=== PATIENT | female | born 1955 | race Caucasian/White ===

== ENCOUNTER 2025-01-03 15:24 | Emergency (ER) | payer MEDICARE, SELFPAY ==
--- NOTE | ~2025-01-03 | US_ITS ---
LEFT LOWER EXTREMITY VENOUS ULTRASOUND Ordering provider: Mariam Escobar MD History: . LLE swelling; mom of PE . Comparison: None. FINDINGS: --COMMON FEMORAL: Patent and free of thrombus. Normal compressibility, phasic flow and augmentation. --PROXIMAL SUPERFICIAL FEMORAL: Patent and free of thrombus. Normal compressibility, phasic flow and augmentation. --DISTAL SUPERFICIAL FEMORAL: Patent and free of thrombus. Normal compressibility, phasic flow and au gmentation. --POPLITEAL: Patent and free of thrombus. Normal compressibility, phasic flow and augmentation. --POSTERIOR TIBIAL: Patent and free of thrombus. Normal compressibility, phasic flow and augmentation . IMPRESSION: Negative left lower extremity venous US. No deep vein thrombosis. Reviewed, dictated and finalized at location A.
[2025-01-03 15:33] VITALS: BP 142/82; PULSE 81; RESP 17; TEMP 36.8; O2SAT 97
--- OUTSIDE RECORDS SUMMARY | 2025-01-03 17:04 | XMS_ITS | Encounter Summary ---
Author Organization [facility] Address [address] [place] [address] Phone Care Team Providers Care Continuous Washer Operator Name Role Phone Imtiaz Leung MD Unavailable [phone] Viviane Parker MD Primary Care Provider [phone] Yuliana Downey RN Unavailable Unavailab Donna Black MD Unavailable [phone] Apurva Mcallister APRN, NON DESTRUCTIVE TESTING SPECIALIST Primary Care Provi checo Encounter Details Date Type Department Care Team (Late st Contact Info) Description 02/08/2020 Lab Requisition [facility] [address] [place] [address] Viviane Parker MD [address] [facility] [address] [place] [address] Unspecified lump in unspecified breast Social History Tobacco Use Types Packs/Day Years Used Date Smoking Tobacco: Never Smokeless Tobacco: Never Alcohol Use Standard Drinks/Week Comments Not Asked 0 (1 standard drink = 0.6 oz pur e alcohol) Comments No Sex and Gender Information Value Date Recorded Sex Assigned at Not on file 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 No / Unsure 02/08/2020 12:37 PM CDT documented as of this encounter Plan of Treatment Not on file documented as of this encounter Procedures Procedure Name Priority Date/Time Associated Diagnosis Comments PATHOLOGY SURGICAL STAT 02/08/2020 2: 15 PM CDT Unspecified lump in unspecified breast documented in this encounter Results * PATHOLOGY SURGICAL (02/08/2020 2:15 PM CDT) Case Report Surgical Pathology Report Case: [id number] Authorizing Provider: Viviane Parker MD Collected: 02/08/2020 02:15 PM Ordering Location: [facility] Received: 02/08/2020 04:[address] [facility] Pathologist: Dmitri Seo MD Specimen: Breast, Left Breast 02/16/2020 8:40 AM CDT [facility] FINAL DIAGNOSIS Breast, left, mass/asymmetry/enhanci ng lesion, MRI guided core needle biopsies: - Invasive lobular carcinoma, histologic grade 1-2 (of 3). 02/16/2020 8:40 AM CDT [facility] Amendment electronically signed by Dmitri Seo MD on 02/16/2020 at 0840 CDT Amendment electronically signed by Dmitri Seo MD on 02/10/2020 at 1414 CDT at [address] Haider has reviewed the slides on this case and concurs with the above diagnosis. 02/16/2020 8:40 AM CDT [facility] Pre-Operative Diagnosis Left breast suspicious mass; corresponds to distortion on mammogram; concern for additional malignancy. 02/16/2020 8:40 AM CDT [facility] Gross Description A. Breast. Received in formalin labeled left breast, Junie Smith Juan José. , consists of 7 rubbery lobulated yellow to ramesh cores ranging from 0.7-1.5 cm in maximum dimensions and measuring 0.2 cm in diameter. These are inked black. Entirely submitted in A1-A2 cassette. Moses Granda Date/time in formalin: 02/08/20 @ 14:15h Date/time out of formalin: 02/08/20@ 23:30h 02/16/2020 8:40 AM CDT [facility] Microscopic Description A. A microscopic examination was performed and the findings are reflected the final diagnosis. Of note, there is loss of p63 and p40 immunoreactivity in the invasive carcinoma. The tumor cells are negative for E-Cadherin confirming lobular differentiation. All controls reacted appropriately. 02/16/2020 8:40 AM CDT [facility] Comment: This document was completed utilizing speech recognition software. Grammatical errors, random word insertions, pronoun errors, and incomplete sentences are an occasional consequence of this system due to software limitations, ambient noise, and hardware issues. Any formal questions or concerns about the content, text or information contained within the body of this dictation should be directly addressed to the provider for clarification. Amendment THE REPORT WAS AMEND ED TO INCLUDE THE BREAST CANCER PREDICTIVE MARKER RESULTS. THE ORIGINAL PATHOLOGIC DIAGNOSIS WAS NOT CHANGED. BREAST CANCER PREDICTIVE MARKERS TEST INFORMATION: Breast Panel (ER, WI, HER2) (FOR RESULTS, SEE SYNOPTIC REPORT BELOW) PRE-ANALYTIC FIXATION DATA: Date / Time Tissue Collected: 02/08/201414 Date / Time Placed In Fixative: 02/08/201414 Cold Ischemia Time (< 60 minutes): 0 Fixation Time (6-72 hours): 9.15 Fixative: 10% Neutral Buffered Formalin Specimen Processing Type: FFPE IHC Control Results: POSITIVE / WITHIN ESTABLISHED LIMITS Cold Ischemia and Fixation Times: Specimen meets requirements specified in latest version of the ASCO / CAP Guidelines. CAP Guidelines For Interpretation on ER / WI Results ER / WI scoring: - Positive = > to 1% tumor cells staining - Negative = < 1% tumor cells staining 0 = 0 positive cells, intensity score of None, observation of 0 1 = < 1% of positive cells, intensity score of Weak, observation of 1 2 = 1-10 % positive cells, intensity score of Intermediate, observation of 2 3 = 11-33 % positive cells, intensity score of Strong, observation of 3 4 = 34-66 % positive cells 5 = > 67% of positive cells Sum and Proportion Intensity Score: - Negative = 0-2 - Positive = 3-4 HER2 Scorin+ (NEGATIVE BY IHC) (*SEE NOTE) (3+) Percent Cells 0.703180 (2+) Percent Cells 0.4783 (1+) Percent Cells 36.81 <<<< (0+) Percent Cells 62.7 HER2 Interpretation: - Positive = 3+ - Equivocal = 2+ - Negative = 0-1+ (These scoring criteria are based on the 2013 ASCO / CAP guidelines.) CASE COMMENTS / SPECIAL CONSIDERATIONS: > NOTE: Please see Reflex HER2 FISH Analysis in the Breast Biomarker Synoptic Report below. > *NOTE: HER2 IHC Analysis Results are 1+. Reflexing to HER2 FISH Analysis. NOTE: This analysis does not represent a final diagnosis but is intended for the use as an adjunct to the evaluation of the treating physician. NOTE: The Donte score combines the percentage of positive cells and the intensity of the reaction product in most of the carcinoma. The 2 scores are added together for a final score with 8 possible values. Scores of 0 and 2 are considered negative. Scores of 3 to 8 are considered positive. (Ref. CAP Template for Reporting Results of Biomarker Testing of Specimens from Patients With Carcinoma of the Breast Template (web posting date: May 2013)) NOTE: Analyte-specific reagent(s)/antibody(ie s)/probes were developed for immunohistochemistry and/or in-situ hybridization and their performance characteristics determined by an outside vendor. Pertinent diagnostic performance characteristics were then verified by [facility] prior to use. These reagents/antibodies have not been cleared or approved by the FDA, however, the FDA has determined that such clearance or approval is not necessary. This test was used for clinical purposes. It should not be regarded as investigational or for research. This laboratory is certified under the Clinical Laboratory Improvement Amendments of 1988 (CLIA-88) as qualified to perform high complexity clinical laboratory testing. == _ HER-2 TESTING BY FISH The 2018 updated ASCO/CAP Clinical Practice Guidelines and Recommendations for Her-2 testing in Breast Cancer were utilized (see interpretation below). Number of Tumor Cells Counted: 20 Number of Observers: 1 (Tech(s): [facility]) The average of Her-2/yamini copies per cell: 2.2 The average of cen17 copies per cell: 1.8 The Her-2/cen17 ratio is: 1.2 (GROUP 5) RESULT: NON-AMPLIFIED for Her-2 Gene Expression. Interpretation If HER2/cep17 ratio > 2.0: FISH POSITIVE (Average HER2 Copy Number > 4.0 Signals / Cell) (Group 1) (Average HER2 Copy Number < 4.0 Signals / Cell) (Group 2) (Average HER2 Copy Number > 6.0 Signals / Cell (Group 3) If HER2/cep17 ratio <2: but Average HER2 Copy Number > 4 and < 6 Signals/Cell: FISH (EQUIVOCAL) (Group 4) >>> but Average HER2 Copy Number < 4.0 Signals/Cell: FISH (NEGATIVE) (Group 5) <<< Test performed on Block [id number], BLOCK A1 The PathVysion Kit is a single probe staining procedure (manufactured by [employer], [facility] [place], [place]) that was used for the quantitative assessment of HER2 gene amplification status. The FISH analysis was performed on areas of invasive tumor cells that were defined by a pathologist from corresponding H&E and HER2 IHC slides. A minimum of twenty invasive tumor nuclei were manually analyzed by a qualified technologist. For each nucleus, the number of HER2 signals and the number of centromere 17 (ROSIE-17) signals were recorded. Enumeration results are reported as a ratio of the total HER2 hybridization signals to ROSIE-17 hybridization signals. An average number of HER2 signals / nucleus and an average number of centromere 17 signals / nucleus were also recorded. 02/16/2020 8:40 AM CDT [facility] Synoptic Reporting Breast Biomarker Reporting Template (BREAST: BIOMARKER REPORTING TEMPLATE - A) Protocol posted: 02/16/2019 Test(s) Performed: Estrogen Receptor (ER) Status: Positive Percentage of Cells with Nuclear Positivity: 92.2 % Average Intensity of Staining: Strong Test Type: Food and Drug Administration (FDA) cleared (test / vendor): [employer] ULTRAVIEW DAB DETECTION SYSTEM Primary Antibody: SP1 Scoring System: No separate scoring system used Test(s) Performed: Progesterone Receptor (PgR) Status: Positive Percentage of Cells with Nuclear Positivity: 83.4 % Average Intensity of Staining: Strong Test Type: Food and Drug Administration (FDA) cleared (test / vendor): [employer] ULTRAVIEW DAB DETECTION SYSTEM Primary Antibody: 1E2 Scoring System: No separate scoring system used Test(s) Performed: HER2 by Immunohistochemistry: Negative (Score 1+) Test Type: Food and Drug Administration (FDA) cleared (test / vendor): [employer] ULTRAVIEW DAB DETECTION SYSTEM Primary Antibody: 4B5 Test(s) Performed: HER2 by in situ Hybridization: Negative (not amplified) Number of Observers: 1 Number of Invasive Tumor Cells Counted: 20 Method: Dual probe assay Average Number of HER2 Signals per Cell: 2.2 Average Number of CEP17 Signals per Cell: 1.8 HER2 / CEP17 Ratio: 1.2 Aneusomy (as defined by vendor kit used): Not identified Heterogeneous Signals: Not identified Test Type: Food and Drug Administration (FDA) cleared (test / vendor): [employer] HER-2 DNA PROBE KIT Cold Ischemia and Fixation Times: Meet requirements specified in latest version of the ASCO / CAP Guidelines Cold Ischemia Time (minutes): 0 min Fixation Time (hours): 9.15 hours Testing Performed on Block Number(s): [id number], BLOCK A1 METHODS Fixative: Formalin Image Analysis: Performed Method: [employer]O IMAGE ANALYSIS SYSTEM Biomarkers Scored by Image Analysis: ER Biomarkers Scored by Image Analysis: PgR Biomarkers Scored by Image Analysis: HER2 by IHC Biomarkers Scored by Image Analysis: HER2 by SAMY Comment(s) Comment(s): NOTE: HER2 IHC Analysis Results are 1+. Reflex HER2 FISH Analysis Request Submitted. 02/16/2020 8:40 AM CDT [facility] Other BREAST STRUCTURE / Unknown 02/08/2020 2:15 PM CDT 02/08/2020 4:17 PM CDT us Viviane Parker MD PATHOLOGY/CYTOLOGY ORDERA KOLE Edited Result - Final [facility] [address] [place] [address], [place] documented in this encounter Visit Diagnoses Diagnosis Unspecified lump in unspecified breast documented in this encounter Additional Health Concerns Infection Onset Date Last Indicated Resolved Time C. difficile Rule-Out 09/01/2024 09/02/20242024 12:09 PM CDT documented as of this encounter Care Teams Continuous Washer Operator Relationship Specialty Start Date End Date Viviane Parker MD [address] [address] PCP - General Family Medicine 08/30/12 01/16/22 Apurva Mcallister APRN, NON DESTRUCTIVE TESTING SPECIALIST [address] [place] [address] PCP - General Certified Nurse Practitioner 01/17/22 Imtiaz Leung MD [address] [place] [address] Consulting Physician Cardiovascular Disease - Cardiology 08/25/12 Yuliana Downey RN [place] Oncology Nurse Navigator Breast Clinic / Breast Center 01/30/20 Donna Adkins MD [place] Surgeon General Surgery 01/30/20 documented as of this encounter
--- OUTSIDE RECORDS SUMMARY | 2025-01-03 17:04 | XMS_ITS | Continuity of Care Document ---
Author Organization [facility] Address [address] [place] [address] Phone Care Team Providers Care Projects Manager Name Role Phone Priyank OD OD, Christiano Unavailable Unavailable Allergies, Adverse Reactions, Alerts Substance Reaction Status Criticality adhesive Rash Active No Information iodine itching in ears(moderate) Active No Information Medications Medication Instructions Dosage Effective Dates (start - stop) Status Comments Pred Forte 1 % eye drops,suspension instill 1 drop by ophthalmic route 4 times every day into both eyes 1 drop - Active Systane Balance 0.6 % eye drops 1 drop 3 times per day both eyes - Active flaxseed oil 1,000 mg capsule take 1 capsule by oral route 2 times every day 1 capsule - Active Pataday Once Daily Relief 0.2 % eye drops instill 1 drop by ophthalmic route every day into affected eye(s) 1.00 drop - Active RED YEAST RICE (unknown strength) Not Available - Active PROBIOTIC (unknown strength) Not Available - Active GINKGO BILOBA (unknown strength) Not Available - Active ALENDRONATE SODIUM (unknown strength) take 2 tablet by oral route every week in the morning, at least 30 min before first food, beverage, or medication of day Not Available - Active TUMS (unknown strength) Not Available - Active Multiple Vitamins tablet take 1 tablet by oral route every day with food - Active biotin 5 mg capsule - Active FISH OIL (unknown strength) Not Available - Active VITAMIN D3 (unknown strength) Not Available - Active CYMBALTA (unknown strength) Not Available - Active Procedures Procedure Date OFFICE/OUTPATIENT VISIT, EST OFFICE/OUTPATIENT VISIT, EST POSTOP FOLLOW-UP VISIT REFRACTION POSTOP FOLLOW-UP VISIT Extracapsular Cataract Removal With Inse rtion Of Intraocular Lens REFRACTION OFFICE/OUTPATIENT VISIT, EST OPHTHALMIC BIOMETRY POSTOP FOLLOW-UP VISIT Extracapsular Cataract Removal With Inse rtion Of Intraocular Lens OFFICE/OUTPATIENT VISIT, EST OPHTHALMIC BIOMETRY REFRACTION OFFICE/OUTPATIENT VISIT, EST REFRACTION EYE EXAM, NEW PATIENT Glasses Rx Given REFRACTION REFRACTION EYE EXAM & TREATMENT Glasses Rx Given OFFICE/OUTPATIENT VISIT, EST SPECIAL EYE EXAM, SUBSEQUENT POSTOP FOLLOW-UP VISIT Prophylaxis Of RD Without Drainage, 1 Or More Sessions, Photocoagulation SPECIAL EYE EXAM, INITIAL OFFICE CONSULTATION OFFICE/OUTPATIENT VISIT, NEW Advance Directives Directive Yes / No Effective Date File Name No Information Encounters Encounter Description Practice Location Reason(s) For Visit Diagnoses Date Provider Providers Copied on Encounter OFFICE/OUTPAT IENT VISIT, EST [facility], [address] [place], [id number] tel:[phone] MARY [place] IOP check due to Allergic conjunctivit is right eye and (chief complaint) Allergic conjunctivit is, bilateral Sep-2 3 Heden OD Christiano. [address] [place], [id number]. tel:[phone] Referring Provider: Aurelia Aguila MD, [facility] [address] [place], [address]. tel:[phone] OFFICE/OUTPAT IENT VISIT, EST [facility], [address] [place], [id number] tel:[phone] MARY [place] foreign body sensation left eye week(s) (chief complaint) Allergic conjunctivit is, bilateralPse udophakia of both eyes Apr-1 3 Heden OD Christiano. [address] [place], [id number]. tel:[phone] Referring Provider: Christianoizaiah Yost OD S, [address] [place], [address]. tel:[phone] [facility], [address] [place], [id number] tel:[phone] MARY [place] PO CE IOL right eye and left eye week(s) (chief complaint) Pseudophakia of both eyesAllergic conjunctivit is, bilateral Mar-3 3 Heden OD Christiano. [address] [place], [id number]. tel:[phone] Referring Provider: Aurelia Aguila MD, [facility] [place], [address]. tel:[phone] [facility], [address] [place], [id number] tel:[phone] MARY [place] PO CE IOL right eye 1 day(s) (chief complaint) Presence of intraocular lens Mar-2 3 Heden OD Christiano. [address] [place], [id number]. tel:[phone] Referring Provider: Aurelia Aguila MD, [facility] [place], [address]. tel:[phone] [facility], [address] [place], [id number] tel:[phone] Rafael Acharya No Information Mar-2 - 3 Claudia Kang. [facility] , [address] [place], [id number]. tel:[phone] Referring Provider: Aurelia Aguila MD, [facility] [place], [address]. tel:[phone] OFFICE/OUTPAT IENT VISIT, EST [facility], [facility] [address] [place], [id number] tel:[phone] MARY GrandeSmilax 1 wk PO check left eye (chief complaint)ca taract right eye (chief complaint) Presence of intraocular lensCombined form of age-related cataract, right eye Mar-1 3 Colleen Omer. [facility], [facility] [address] [place], [id number]. tel:[phone] Referring Provider: Aurelia Aguila MD, [facility] [place], [address]. tel:[phone] [facility], [facility] [address] [place] [place], [id number] tel:[phone] MARY [place] No Information Mar-1 3 Claudia Kang. [facility] , [facility] [address] [place] [place], [id number]. tel:[phone] Referring Provider: Aurelia Aguila MD, [facility] [place], [address]. tel:[phone] [facility], [facility] [address] [place], [id number] tel:[phone] MARY [place] PO CE IOL left eye 1 day(s) (chief complaint)de creased vision right eye several months (chief complaint) Presence of intraocular lens Mar-0 3 Heden OD Christiano. [address] [place], [id number]. tel:[phone] Referring Provider: Aurelia Aguila MD, [facility] [address] [place], [address]. tel:[phone] [facility], [address] [place], [id number] tel:[phone] [facility] No Information 3 Claudia Kang. [facility] , [address] , [place], [id number]. tel:[phone] Referring Provider: Aurelia Aguila MD, [facility] [address] [place], [address]. tel:[phone] OFFICE/OUTPAT IENT VISIT, EST [facility], [address] [place], [id number] tel:[phone] [facility] comments only (chief complaint) Combined forms of age-related cataract of left eye Fe-0 3 Claudia Kang. [facility] , [address] [place], [id number]. tel:[phone] Referring Provider: Aurelia Aguila MD, [facility] [address] [place], [address]. tel:[phone] [facility], [address], [place], [id number] tel:[phone] [facility] No Information 0 3 Claudia Kang. [facility] , [address] [place], [id number]. tel:[phone] Referring Provider: Aurelia Aguila MD, [facility] [address] [place], [address]. tel:[phone] OFFICE/OUTPAT IENT VISIT, EST [facility], [address] [place], [id number] tel:[phone] MARY [place] cataract left > right year(s) (chief complaint)fl oaters right eye and left eye year(s) (chief complaint)Ke ratoconjunct sicca, not specified as Sjogren's right (chief complaint) Combined forms of age-related cataract of left eyeCombined form of age-related cataract, right eyeAstigmati sm of both eyes, unspecified type 3 Claudia Kang. [facility] , [facility] [address] [place], [id number]. tel:[phone] Referring Provider: Tate Pozo OD, [facility] [address], [address]. tel:[phone] [facility], [facility] [address] [place], [id number] tel:[phone] MARY Smilax dryness right eye and left eye several years (chief complaint)ca taract right eye and left eye several years (chief complaint)fl oaters right eye and left eye several years (chief complaint) Keratoconjun ct sicca, not specified as Sjogren's, bilateralAge -related nuclear cataract, bilateralVit reous floaters of both eyesBilatera l presbyopia Oct-2 1 Ayla Hansen. [facility] , [facility] [address] [place], [id number]. tel:[phone] Specialist: Isabela Mario OD, [address] [place] [address], [phone].Refer ring Provider: Aurelia Aguila MD, [facility] [place], [address]. [phone] [facility], [facility] [address] [place] [place], [id number] tel:[phone] MARY Cordova Hypermetropi a, bilateral Oct-2 2-201 5 Ayla Hansen. [facility] , [facility] [address] [place], [id number]. tel:[phone] Referring Provider: Aurelia Aguila MD, [facility] [place], [address]. tel:[phone] [facility], [facility] [place], [id number] tel:[phone] MARY Cordova PresbyopiaHy permetropiaS enile nuclear sclerosisSen ile nuclear sclerosisTea r film insufficienc y, unspecified 5 Ayla Hansen. [facility] , [facility] [place], [id number]. tel:[phone] Referring Provider: Aurelia Aguila MD, [facility] [place], [address]. tel:[phone] OFFICE/OUTPAT IENT VISIT, EST [facility], [facility] [place], [id number] tel:[phone] MARY Cordova Vitreous degeneration Senile nuclear sclerosisHor seshoe tear of retina without detachmentDe rmatocleveland clinic marymount hospitaltiffaniei s 5 Ayla Hansen. [facility] , [facility] [place], [id number]. tel:[phone] Referring Provider: Aurelia Aguila MD, [facility] [place], [address]. tel:[phone] [facility], [facility] [place], [id number] tel:[phone] MARY [place] Horseshoe tear of retina without detachment 4 Tejal Bautista. [address] [place], [address], [place]. tel:[phone] Referring Provider: Aurelia Aguila MD, [facility] [place], [address]. tel:[phone] OFFICE CONSULTATION [facility], [address] [place] [address], [id number] tel: [phone] MARY [place] Vitreous degeneration Vitreous hemorrhageHo rseshoe tear of retina without detachment Oct-2 4 Tejal Bautista. [address] [place] [address], [address], . tel:[phone] OFFICE/OUTPAT IENT VISIT, [facility], [address] [place] [address], [id number] tel: [phone] [facility] Vitreous hemorrhageVi treous degeneration Vitreous degeneration Senile nuclear sclerosis Oct-2 4 Ayla Hansen. [facility] , [address] [place] [address], [id number]. tel:[phone] Specialist: Isabela Mario OD, [address] [place] [address], [phone].Refer ring Provider: Sandra Faustin MD, [facility] - Rheumatolog y [address], [place], [address]. tel:[phone] Family History Family Member Type Diagnosis Age At Onset Sister Problem (finding) Chron's Disease Mother Problem (finding) Pulminary Embolism Father Problem (finding) Parkinson's disease Payers Payer name Insurance type Covered green party ID Authoriza tion(s) [employer] Medicare MB [id number] Social History Type Description Quantity Date Captured Comments Alcohol Use Details occasional w ine weekly Caffeine Use Details Unknown Tobacco Use Status Current non-smoker Smoking Status Never smoker Non-Smoking Tobacco Use Details : No Details Available : No Details Available Sex Female Chief Complaint And Reason For Visit From encounter dated '10/09/2022 14:45'. IOP check due to Allergic conjunctivitis right eye and (chief complaint) Reason For Referral Reason For Referral No Information History Of Present Illness Encounter Date Complaint History Of Prese nt Illness IOP check due to All ergic conjunctivitis The 67 year old presents for evaluation of IOP check due to Allergic conjunctivitis in the right eye and left eye. It started about 1 week(s) ago. The symptom is constant. The condition is improving. Pt is doing much better than what she was. Using the drops QID OU foreign body sensation The 67 ye ar old presents for evaluation of foreign body sensation in the left eye. It started week(s) ago. The symptom is constant. The condition is unstable. Pt states that her left eye feels like there is something in the eye. She has been using Pataday and artificial tears every day.She is also noticing more floaters when she is outside in the sun PO CE IOL The 67 year old presents for evaluation of PO CE IOL in the right eye and left eye. It started week(s) ago. The symptom is constant. The condition is improving. Pt is using readers for reading PO CE IOL The 66 year old presents for evaluation of PO CE IOL in the right eye. It started about 1 day(s) ago. The symptom is constant. The condition is stable. Pt is dong well. No pain. No headaches cataract The 66 year old presents for evaluation of cataract in the right eye. CC for 2nd eye done @ 1 day PO check for OD. Pt c/o issues when doing close work. The condition is limiting patient's ability to read. In addition, the condition is associated with driving at night. 1 wk PO check The 66 year old presents for evaluation of 1 wk PO check in the left eye. Pt notes eye fatigue, Va + improved OS. No pain or discomfort OS. LENS: [id number] OS 08/27/2022, AIM -0.3DROPS: MOX, PA AND PROLENSA OS, LAST @ 9:00am PO CE IOL The 66 year old presents for evaluation of PO CE IOL in the left eye. It started about 1 day(s) ago. The symptom is constant. The condition is improving. decreased vision The 66 year old presents for evaluation of decreased vision in the right eye. It started several months ago. The symptom is constant. It occurs when doing close work. The condition is limiting patient's ability to read. In addition, the condition is associated with driving at night. comments only pt here to discu ss refractive surgery options cataract The 66 year old presents for evaluation of cataract in the left > right. It started year(s) ago. The symptom is constant. The condition is stable. In addition, the condition is associated with reading road signs. Consult per Dr Pozo floaters The 66 year old presents for evaluation of floaters in the right eye and left eye. It started year(s) ago. The symptom is constant. The condition is stable. hx: HST OS Retinopexy OS with MH Keratoconjunct sicca , not specified as Sjogren's The 66 year old presents for evaluation of Keratoconjunct sicca, not specified as Sjogren's in the right eye and left eye. It started year(s) ago. The symptom is constant. The condition is stable. hx: Xiidra Use unsure if any comfort Flaxseed Oil , [place] 3 Occasional Artificial tears I'm not very diligent cataract The 65 year old presents for evaluation of cataract in the right eye and left eye. It started several years ago. It affects OU. The symptom is constant. It occurs always. The condition is moderate. The condition is described as blurring. c/o glare with night driving dryness The 65 year old presents for evaluation of dryness in the right eye and left eye. It started several years ago. The symptom is constant. It occurs always. The condition is moderate. Pt states she has tried using Xiidra in the past but didn't seem to help.Pt has AT's but not on a regular basis c/o dry mouth floaters The 65 year old presents for evaluation of floaters in the right eye and left eye. It started several years ago. The symptom is intermittent. It occurs always. The condition is worsening. Pt denies any flashes. Functional Status Date Functional Assessmen t No Information Instructions Date Instruction Additional Infor sharron Return in as scheduled Related t o Allergic conjunctivitis, bilateral Impression/Plan Related to Aller gic conjunctivitis, bilateral Return in 1 week Christiano Smith OD for IOP. Related to Allergic conjunctivitis, bilateral Impression/Plan Related to Aller gic conjunctivitis, bilateral Impression/Plan Related to Pseud ophakia of both eyes Return in 1 year Christiano Smith OD for Complete. Related to Pseudophakia of both eyes Impression/Plan Related to Pseud ophakia of both eyes Impression/Plan Related to Aller gic conjunctivitis, bilateral Return in as scheduled Related t o Presence of intraocular lens Impression/Plan Related to Prese nce of intraocular lens RTC as scheduled with CF for Cat Sx OD Related to Combined form of age-related cataract, right eye Impression/Plan Related to Prese nce of intraocular lens Impression/Plan Related to Combi pancho form of age-related cataract, right eye Return in as scheduled Related t o Presence of intraocular lens Impression/Plan Related to Prese nce of intraocular lens Return in as scheduled Related t o Combined 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 Related to Age-related nuclear cataract, bilateral Impression/Plan Related to Vitre ous floaters of both eyes Impression/Plan Related to Age-r elated nuclear cataract, bilateral Impression/Plan Related to Bilat eral presbyopia Impression/Plan Related to Kerat oconjunct sicca, not specified as Sjogren's, bilateral - Return in as scheduled Related to Hypermetropia, bilateral Hypermetropia, bilat eral Condition: established, stable. - Pt likes more plus in RX, and add power low in frame. Pt to return to optical for remake Related to Hypermetropia, bilateral Dry Eye Syndrome OU Condition: new prob, no addtl w/u needed. - Discussed with pt eyes are very dry and that the pt is not producing enough tears. When the eyes are dry they become inflamed. When the cornea is dry you can have blurred vision, light sensitivity and discomfort. Sugg pt start taking FSO 1000mg 2x daily and also A/T 2-3 times daily or as needed. Will cont ot monitor. Related to Dry Eye Syndrome Follow up - Return i n 1 year with Aurelia Aguila MD for Complete. Related to Presbyopia Presbyopia OU Condit ion: new prob, no addtl w/u needed. - Discussed diagnosis with patient, new glasses rx given. Stable exam and will continue to monitor. Related to Presbyopia Hyperopia OU Conditi on: new prob, no addtl w/u needed. - see plan 1 Related to Hyperopia Senile nuclear scler osis OU Condition: established, stable. - Cataracts are a cloudy condition of the lens. T he cataracts are not visually significant. It is recommended to observe and monitor the condition for growth until it is b othersome/symptomatic Related to Senile nuclear sclerosis Dermatochalasis OU C ondition: established, stable. - No treatment is required at this time. Will continue to observe condition and or symptoms. Related to Dermatochalasis Horseshoe tear of re aurelia without detachment OS Condition: established, stable. - Stable Related to Horseshoe tear of retina without detachment - Return in 1 year w Aurelia Richardson MD for Complete. Related to Vitreous degeneration Vitreous degeneratio n OS Condition: established, stable. - Educational materials provided: Stable. No holes, tears, or detachments seen. Related to Vitreous degeneration Senile nuclear scler osis OU Condition: established, stable. - No treatment is required at this time. Will continue to observe condition and or symptoms. Related to Senile nuclear sclerosis - Return in 3-4 chasity hs with Aurelia Aguila MD for Complete. Related to Horseshoe tear of retina without detachment Horseshoe tear of re aurelia without detachment OS Condition: established, stable. - Adequate laser treatment around tear. Retina attached, no new holes or tears seen. Can take months for hemorrhage to finally settle. Discussed may always have floaters from time to time due to the jelly floating around inside the eye. Retinal tear/Retinal Detachment warnings reviewed, call with changes. Okay to resume normal activitiesRELEASE CARE TE Related to Horseshoe tear of retina without detachment Vitreous degeneratio n OS Condition: new problem addtl w/u needed. - Educational materials provided: Discussed PVD- (Posterior Vitreous Detachment)Usually a normal benign process with age/time. Sometimes the vitreous can pull hard enough on the retina to cause a hole/tear which can lead to a more serious event of a retinal detachment = Loss of vision. Also can tug on a superficial blood vessel causing a hemorrhage. SEE PLAN 2 & 3 Related to Vitreous degeneration Vitreous hemorrhage OS Condition: new prob, no addtl w/u needed. - Due to seperation of vitreous jelly tugging on blood vessel. Laser will not change floaters, they will eventually settle into lower part of eye as hemorrhage reabsorbs. Related to Vitreous hemorrhage - Return in 2-3 week s with Michele Toure MD for Dilate and IOP. Related to Horseshoe tear of retina without detachment Horseshoe tear of re aurelia without detachment OS Condition: new problem addtl w/u needed. - Discussed RT- (Retinal Tear)--Secondary to separation of vitreous gel pulling on retina. Recc laser treatment to seal around tear and reduce risk of retinal detachment. With laser may not prevent Retinal Detachment can have Retinal Tear in another spot, small risk of damage to central vision as treatment is done to periphery. pt understands risks and benefits, elects to proceed. RT/RD pamphlet given and warnings reviewedLASER RETINOPEXY OS TODAY Related to Horseshoe tear of retina without detachment Cataract, Nuclear Sc lerosis OU Condition: new prob, no addtl w/u needed. - Cataracts are a cloudy condition of the lens. T he cataracts are not visually significant. It is recommended to observe and monitor the condition for growth until it is b othersome/symptomatic Related to Cataract, Nuclear Sclerosis - Return in Next chelita ilable weeks with Michele Toure MD for Retina Consult. Related to Vitreous Hemorrhage Vitreous Hemorrhage OS Condition: new prob, no addtl w/u needed. - Educational materials provided: Discussed diagnosis in detail with patient. No treatment is required at this time. Advised patient of condition. Reassured patient of current condition and treatment. Will continue to observe condition and or symptoms. No change to current treatment. When the vitreous is detaching it can pull on a vessel which may cause bleeding. This is what has happened with pt. Will refer pt to for a retinal eval. Roula pt sleep with her head elevated at 30 degrees. Related to Vitreous Hemorrhage Vitreous degeneratio n OU Condition: new prob, no addtl w/u needed. - - Discussed with eye model posterior vitreous detachment is a normal process with age, the vitreous gel inside eye shrinks/shifts and pulls away from the retina causing flashes and floaters. Can pull hard enough to tear or detach retina. Can also tug on blood vessels causing hemorrhaging. Call with symptoms. Gave patient warning signs of retinal tear or detachment. Discussed floaters will always be present, may change shape and size, but will become less noticable. Call with symptoms. Related to Vitreous degeneration Assessments Type Assessment Date assessment Allergic conjunctivitis, bilater al impression Allergic conjunctivi tis, bilateral: H10.13 Bilateral. Condition: established, improving Patient Care Teams Name Effective Dates (start - stop) Status Members No Information
--- OUTSIDE RECORDS SUMMARY | 2025-01-03 17:06 | XMS_ITS | Clinical Summary ---
Author Organization [facility] Address [address] [place] [address] Phone Care Team Providers Care Licensed Final Expense Agents Name Role Phone Imtiaz Leung MD Unavailable [phone] Yuliana Downey RN Unavailable Unavailab Donna Black MD Unavailable Apurva Mcallister APRN, DIRECTOR CAMP Primary Care Provi checo Allergies Active Allergy Reactions Criticality Noted Date Comments Iodinated Contrast Media Other (see Comments) 04/22/2019 Tightness in throat Wound Dressings Rash Low 01/30/2020 Medications [place]-3 Fatty Acids (FISH OIL) 1200 MG PO CAPS Take 1,200 mg by mouth daily. Active glucosamine-jaqui droitin 500-400 MG PO CAPS Take 1 Cap by mouth 3 times daily. Active Multiple Vitamins-Mineral s (MULTIVITAMIN PO) Take 1 Tab by mouth daily. Active Cholecalciferol 50 mcg Tablet Take 1,000 Units by mouth daily. Active DULoxetine (CYMBALTA) [address] Particles Take 30 mg by mouth daily. Active meloxicam (MOBIC) 15 MG Tablet Take 15 mg by mouth daily. Active Plant Sterols and Stanols (CHOLESTOFF PLUS PO) Take 900 mg by mouth daily. Active Calcium Carb-Cholecalcif anand 1000-20 MG-MCG Tablet Take by mouth. Active alendronate (FOSAMAX) 35 MG Tablet Take 35 mg by mouth every 7 days. Takes half every week on Thursday Active Turmeric (QC Tumeric Complex) 500 MG Capsule Take by mouth. Active Biotin 5000 MCG Capsule Take by mouth. Active Menaquinone-7 (Vitamin K2) 100 MCG Capsule Take by mouth. Active Vitamin B-6 (PYRIDOXINE) 100 MG Tablet Take 100 mg by mouth daily. Active Red Yeast Rice 600 MG Capsule Take by mouth. Active Lactobacillus (PROBIOTIC ACIDOPHILUS PO) Take by mouth. Active buPROPion SR (Wellbutrin SR) 100 MG TABLET SR 12 HR Take 50 mg by mouth daily. Active MAGNESIUM PO Take by mouth. Active Active Problems Problem Noted Date Diagnosed Date Elevated serum cholesterol 01/17/2020 Overview (01/17/2020): ASCVD based on 2020 FLP 2.5% 10 yr and 39% total life Anxiety and depression 08/31/2012 Resolved Problems Problem Noted Date Diagnosed Date Resolved Date Hypothyroidism 01/17/2020 02/01/2020 Palpitation 08/31/2012 01/17/2020 Encounters Date Type Department Care Team Description 10/06/2024 1:07 PM CDT - 10/06/2024 11:59 PM CDT Hospital Encounter [facility] [address] [place] [address] Apurva Mcallister, CHILD DEVELOPMENT CONSULTANT, DIRECTOR CAMP Discharge Disposition: Discharged to home or Selfcare 10/06/2024 Travel from Last 3 Months Family History Medical History Relation Name Comments Other-comment Mother PE Breast Cancer Neg Hx Ovarian Cancer Neg Hx Relation Name Status Comments Mother Social History Tobacco Use Types Packs/Day Years Used Date Smoking Tobacco: Never Smokeless Tobacco: Never Tobacco Cessation:Counseling Given: Not Answered Alcohol Use Standard Drinks/Week Comments Yes 2 (1 standard drink = 0.6 oz pur e alcohol) Comments No Sex and Gender Information Value Date Recorded Sex Assigned at Not on file Legal Sex Female 10:39 AM SHIP WASHER Gender Identity Not on file Sexual Orientation Not on file Last Filed Vital Signs Vital Sign Reading Time Taken Comments Blood Pressure 122/68 08/05/2022 11:08 AM SHIP WASHER Pulse 72 08/05/2022 11:08 AM SHIP WASHER Temperature 37 C (98.6 F) 03/16/2019 9:07 AM CDT Respiratory Rate 16 08/05/2022 11:08 AM SHIP WASHER Oxygen Saturation 98% 08/05/2022 11:08 AM SHIP WASHER Inhaled Oxygen Concentration - - Weight 69.4 kg (153 lb) 07/31/2022 7:00 AM SHIP WASHER Height 167.6 cm (5' 6) 07/31/2022 7:00 AM SHIP WASHER Body Mass Index 24.69 07/31/2022 7:00 AM SHIP WASHER Plan of Treatment Health Maintenance Due Date Last Done Comments Hepatitis C Virus (HCV) Screening 1955 SARS-COV-2 Immunization (#1) 09/13/1960 Pneumococcal Immunization (50+ years) (1 of 2 - PCV) 09/13/1974 Zoster Immunization (1 of 2) 09/13/1974 Cologuard 09/13/2000 Immunochemical Fecal Occult Blood 09/13/2000 Influenza Immunization (#1) 2025 DEXA Bone Density 10/06/2026 10/06/2024, , 02/28/2020 Respiratory Syncytial Virus (RSV) Immunization (Adult) (1 - 1-dose 75+ series) 09/13/2030 Colonoscopy 08/05/2032 08/05/2022 Colorectal Cancer Screening 08/05/2032 DTaP/Tdap/Td Immunization Discontinued 12/16/2016 TdaP Immunization Completed 12/16/2016 Mammogram Discontinued 01/30/2020, 0601/2020, 09/16/2018, Additional history exists Mammogram Unilateral Discontinued 03/04/2024, 01/30/2023, 01/17/2022, Additional history exists Hepatitis B Immunization Aged Out No longer eligible based on patient's age to complete this topic Human Papillomavirus (HPV) Immunization Aged Out No longer eligible based on patient's age to complete this topic Meningococcal Immunization (ACWY) Aged Out No longer eligible based on patient's age to complete this topic Rotavirus Immunization Aged Out No lo nger eligible based on patient's age to complete this topic Procedures Procedure Name Priority Date/Time Associated Diagnosis Comments NATHANIEL BONE DENSITOMETRY AXIAL SKELETON Routine 10/06/2024 1:30 PM CDT Postmenopausal status [facility] DIAG RIGHT UNILATERAL DIGITAL W CAD W CONNOR Routine 03/04/2024 9:09 AM CDT Malignant neoplasm of upper-outer quadrant of left female breast, unspecified estrogen receptor status (HCC) [facility] MRI BREAST W/WO CONTRAST,BILATERAL Routine 01/30/2020 3:15 PM CDT Malignant neoplasm of left female breast, unspecified estrogen receptor status, unspecified site of breast (HCC) from Last 3 Months or Most Recently Relevant to Health Maintenance Results * [facility] BONE DENSITOMETRY AXIAL SKELETON (10/06/2024 1:30 PM CDT) Anatomical Region Laterality Modality BODY N/A Other 10/06/2024 1:30 PM CDT Impressions 10/06/2024 3:40 PM CDT IMPRESSION: 1. Osteoporosis FRAX Data not reported as some T-scores for the spine and/or hip at or below - 2.5. Follow up Dexa in 2 years may be warranted. Narrative 10/06/2024 3:40 PM CDT DICTATING PHYSICIAN: Jarrett Alexander M.D. EXAM: [facility] BONE DENSITOMETRY AXIAL SKELETON, 10/06/2024 1:30 PM CLINICAL INDICATION: Asymptomatic menopausal state COMPARISON: 20 March 2022 FINDINGS: Lumbar spine: The bone mineral density of the patient's lumbar spine (L2-3) is 0.934 g/cm2 corresponding to a T-score of -1.1 which is in the osteopenia range. The current fracture risk is increased. Left hip: The bone mineral density of the patient's left hip at the femoral neck is 0.553 g/cm2 corresponding to a T-score of -2.7 which is in the osteoporosis range. The current fracture risk is increased. This is a 8% loss from prior. Left forearm: The bone mineral density of the patient's the radius one third is 0.619 g/sq cm corresponding to a T score of -1.3 which is in the osteopenia range. The current risk of fracture is increased. This is not previously measured. Procedure Note Jarrett Alexander MD - 10/06/2024 DICTATING PHYSICIAN: Jarrett Alexander M.D. EXAM: [facility] BONE DENSITOMETRY AXIAL SKELETON, 10/06/2024 1:30 PM CLINICAL INDICATION: Asymptomatic menopausal state COMPARISON: 20 March 2022 FINDINGS: Lumbar spine: The bone mineral density of the patient's lumbar spine(L2-3) is 0.934 g/cm2 corresponding to a T-score of -1.1 which is in theosteopenia range. The current fracture risk is increased. Left hip: The bone mineral density of the patient's left hip at thefemoral neck is 0.553 g/cm2 corresponding to a T-score of -2.7 which is inthe osteoporosis range. The current fracture risk is increased. This is a8% loss from prior. Left forearm: The bone mineral density of the patient's the radius onethird is 0.619 g/sq cm corresponding to a T score of -1.3 which is in theosteopenia range. The current risk of fracture is increased. This is notpreviously measured. IMPRESSION: 1. Osteoporosis FRAX Data not reported as some T-scores for the spine and/or hip at orbelow - 2.5. Follow up Dexa in 2 years may be warranted. Apurva Mcallister APRN, CNP IM DEXA ORDERABLES Final Result * [facility] SEAN RIGHT UNILATERAL DIGITAL W CAD W CONNOR (03/04/2024 9:09 AM CDT) Anatomical Region Laterality Modality breast Right Mammography, Ult rasound 03/04/2024 9:09 AM CDT Impressions 03/04/2024 11:34 AM CDT IMPRESSION: 1. No significant change in size of previously biopsied intraductal papilloma of the right breast. RECOMMENDATION: 1. Short-term interval right breast follow-up per post biopsy protocol. 2. Further management should be based on clinical assessment. Written results and recommendations were given to the patient at the conclusion of this examination today. BI-RADS: 3-Probably benign findings. Narrative 03/04/2024 11:34 AM CDT EXAM: [facility] SEAN RIGHT UNILATERAL DIGITAL W CAD W CONNOR, [facility] US BREAST LIMITED RT 03/04/2024 9:09 AM CLINICAL HISTORY: 68-year-old female with history of left mastectomy for breast carcinoma 2019 and right breast biopsy 02/06/2023 with pathological diagnosis of intraductal papilloma presents for follow-up. COMPARISON: 08/21/2023, 02/06/2023, 01/30/2023, 01/17/2022, 01/11/2021 VIEWS: Right craniocaudal and mediolateral oblique views were performed. Current study was also evaluated with a Computer Aided Detection (CAD) system. Additional 3-D tomographic mammography was also obtained (TOMOSYNTHESIS, which consist of multiplanar projections with computer image reconstruction into 1 mm parallel slices). FINDINGS: Right diagnostic mammogram: Heterogeneously dense fibroglandular tissue which lowers the sensitivity of mammography and which may obscure small masses. No suspicious masses, calcifications, or other significant findings are seen. Targeted right breast ultrasound: Real-time grayscale and color ultrasound of the 8:00 position of the right breast 1 cm deep to the nipple demonstrates no significant change in size of the previously biopsied intraductal papilloma which appears oval, circumscribed and hypoechoic measuring 5 mm x 2 mm. Procedure Note Lyssa Bowman MD - 03/04/2024 EXAM: [facility] DIAG RIGHT UNILATERAL DIGITAL W CAD W NATHANIEL RYAN US BREASTLIMITED RT 03/04/2024 9:09 AM CLINICAL HISTORY: 68-year-old female with history of left mastectomy forbreast carcinoma 2019 and right breast biopsy 02/06/2023 with pathologicaldiagnosis of intraductal papilloma presents for follow-up. COMPARISON: 08/21/2023, 02/06/2023, 01/30/2023, 01/17/2022, 01/11/2021 VIEWS: Right craniocaudal and mediolateral oblique views were performed.Current study was also evaluated with a Computer Aided Detection (CAD)system. Additional 3-D tomographic mammography was also obtained(TOMOSYNTHESIS, which consist of multiplanar projections with computerimage reconstruction into 1 mm parallel slices). FINDINGS: Right diagnostic mammogram: Heterogeneously dense fibroglandular tissuewhich lowers the sensitivity of mammography and which may obscure smallmasses. No suspicious masses, calcifications, or other significantfindings are seen. Targeted right breast ultrasound: Real-time grayscale and color ultrasoundof the 8:00 position of the right breast 1 cm deep to the nippledemonstrates no significant change in size of the previously biopsiedintraductal papilloma which appears oval, circumscribed and hypoechoicmeasuring 5 mm x 2 mm. IMPRESSION: 1. No significant change in size of previously biopsied intraductalpapilloma of the right breast. RECOMMENDATION: 1. Short-term interval right breast follow-up per post biopsy protocol. 2. Further management should be based on clinical assessment. Written results and recommendations were given to the patient at theconclusion of this examination today. BI-RADS: 3-Probably benign findings. us Lin Gutierrez CHILD DEVELOPMENT CONSULTANT, DIRECTOR CAMP IMG MAMMO ORDERABLES Final Result * [facility] MRI BREAST W/WO CONTRAST,BILATERAL (01/30/2020 3:15 PM CDT) Anatomical Region Laterality Modality breast Bilateral Magnetic Resonan ce 01/30/2020 3:15 PM CDT Impressions 01/31/2020 10:22 AM CDT IMPRESSION: 1. There is minimal enhancement associated with the biopsy marking clip in the left lateral breast at posterior depth which corresponds to the patient's known breast cancer. 2. There is a suspicious 0.6 cm enhancing mass in the left lateral breast at middle depth. This corresponds to the area of architectural distortion on mammography. This mass is approximately 3.5 cm anterior to the patient's known malignancy. 3. No MRI evidence of malignancy in the right breast. RECOMMENDATION: MRI guided core needle biopsy of the suspicious mass in the left lateral breast at middle depth is recommended (location F -80.9). BI-RADS: 4 - Suspicious Abnormality. Narrative 01/31/2020 10:22 AM CDT DICTATING PHYSICIAN: Shanta Ledesma M.D. EXAM: [facility] MRI BREAST W/WO CONTRAST,BILATERAL, 01/30/2020 3:15 PM. CLINICAL HISTORY: Patient has known carcinoma of the left breast. She presents for pre-surgical planning to determine extent of disease in the left breast and to exclude additional malignancy in both breasts. COMPARISON EXAMS: Mammography (01/20/2020, 01/06/2020, 11/28/2019, 09/16/2018), sonography (01/06/2020) and ultrasound guided core biopsies of the left breast (01/20/2020). Technique: The patient's breasts were imaged in a GE 1.5 Mariam magnet using M2 Connections software and a Sentinelle table with a dedicated breast coil. Imaging consisted of: axial FSE T2, axial STIR, axial FSE T1, axial vibrant T1 3D-FSPGR with fat saturation pre- contrast and dynamic enhanced sequences. During the first dynamic acquisition, 14 mL of Gadolinium (Prohance) was administered as an intravenous bolus injection. A total of five sequential 3D data-sets were acquired over 8 minutes 8 seconds. Post processing techniques: Time-intensity curves, pre- and post-contrast subtraction sequences, sagittal and coronal reconstructed images, DynaCAD analysis, and 3-D images (MIPS), were obtained at the work station. Findings: The tissue of both breasts is heterogeneous fibroglandular tissue. Following intravenous gadolinium administration, there is mild background glandular enhancement of both breasts. LEFT BREAST: Pre-gadolinium T1 and T2-weighted images demonstrate focus of signal dropout within the left lateral breast at posterior depth and within the left lateral breast at middle depth corresponding to recently placed biopsy marking clips. Following intravenous gadolinium administration, there are the following areas of suspicious or equivocal enhancement in the left breast: -There is a suspicious 0.6 x 0.5 cm enhancing mass in the left lateral breast at middle depth, corresponding to area of distortion on mammography. This is best seen at location F -80.9. This is approximately 3.4 cm anterior to the biopsy marking clip at posterior depth at site of patient's known malignancy. -There is minimal enhancement associated with the previously placed biopsy clip in the left lateral breast at posterior depth at site of patient's known malignancy, best seen at location F- 71.9. No adenopathy, skin or nipple abnormalities are identified. RIGHT BREAST: Pre-gadolinium T1 and T2-weighted images demonstrate no suspicious mass. Following intravenous gadolinium administration, there is no area of suspicious enhancement in the right breast. No adenopathy, skin or nipple abnormalities are identified. . Procedure Note Shanta Ledesma MD - 01/31/2020 DICTATING PHYSICIAN: Shanta Ledesma M.D. EXAM: [facility] MRI BREAST W/WO CONTRAST,BILATERAL, 01/30/2020 3:15 PM. CLINICAL HISTORY: Patient has known carcinoma of the left breast. Shepresents for pre-surgical planning to determine extent of disease in theleft breast and to exclude additional malignancy in both breasts. COMPARISON EXAMS: Mammography (01/20/2020, 01/06/2020, 11/28/2019, 09/16/2018),sonography (01/06/2020) and ultrasound guided core biopsies of the leftbreast (01/20/2020). Technique: The patient's breasts were imaged in a [place] 1.5 Mariam magnet using MagTagtware and a Sentinelle table with a dedicated breast coil. Imagingconsisted of: axial FSE T2, axial STIR, axial FSE T1, axial vibrant [id number] with fat saturation pre- contrast and dynamic enhanced sequences.During the first dynamic acquisition, 14 mL of Gadolinium (Prohance) wasadministered as an intravenous bolus injection. A total of five [id number] data-sets were acquired over 8 minutes 8 seconds. Post processing techniques: Time-intensity curves, pre- and post-contrast subtraction sequences,sagittal and coronal reconstructed images, DynaCAD analysis, and 3-Dimages (MIPS), were obtained at the work station. Findings: The tissue of both breasts is heterogeneous fibroglandular tissue.Following intravenous gadolinium administration, there is mild backgroundglandular enhancement of both breasts. LEFT BREAST: Pre-gadolinium T1 and T2-weighted images demonstrate focus ofsignal dropout within the left lateral breast at posterior depth andwithin the left lateral breast at middle depth corresponding to recentlyplaced biopsy marking clips. Following intravenous gadoliniumadministration, there are the following areas of suspicious or equivocalenhancement in the left breast: -There is a suspicious 0.6 x 0.5 cm enhancing mass in the left lateralbreast at middle depth, corresponding to area of distortion onmammography. This is best seen at location F -80.9. This is approximately3.4 cm anterior to the biopsy marking clip at posterior depth at site ofpatient's known malignancy. -There is minimal enhancement associated with the previously placed biopsyclip in the left lateral breast at posterior depth at site of patient'sknown malignancy, best seen at location F- 71.9. No adenopathy, skin or nipple abnormalities are identified. RIGHT BREAST: Pre-gadolinium T1 and T2-weighted images demonstrate nosuspicious mass. Following intravenous gadolinium administration, there isno area of suspicious enhancement in the right breast. No adenopathy, skinor nipple abnormalities are identified. . IMPRESSION: 1. There is minimal enhancement associated with the biopsy marking clip inthe left lateral breast at posterior depth which corresponds to thepatient's known breast cancer. 2. There is a suspicious 0.6 cm enhancing mass in the left lateral breastat middle depth. This corresponds to the area of architectural distortionon mammography. This mass is approximately 3.5 cm anterior to thepatient's known malignancy. 3. No MRI evidence of malignancy in the right breast. RECOMMENDATION: MRI guided core needle biopsy of the suspicious mass in the left lateralbreast at middle depth is recommended (location F -80.9). BI-RADS: 4 - Suspicious Abnormality. Viviane Parker MD IMG MR ORDERABLES Final R esult from Last 3 Months or Most Recently Relevant to Health Maintenance Insurance MEDICARE C [employer] Care Teams Licensed Final Expense Agents Relationship Specialty Start Date End Date Apurva Mcallister APRN, DIRECTOR CAMP [address] [place] [address] PCP - General Certified Nurse Practitioner 01/17/22 Imtiaz Leung MD [address] [place] [address] Consulting Physician Cardiovascular Disease - Cardiology 08/25/12 Yuliana Downey RN [place] Oncology Nurse Navigator Breast Clinic / Breast Center 01/30/20 Donna Adkins MD [place] Surgeon General Surgery 01/30/20
--- NOTE | 2025-01-03 17:45 | ED.EXTPRO ---
HPI - Extremity Problem General Chief complaint: Extremity Problem,Nontraumatic Stated complaint: leg pain, swelling Time Seen by Provider: 01/03/25 15:36 History of Present Illness HPI Narrative: Patient here with left leg bruising/swelling to lateral/anterior leg; she has been running around recently a lot with family members, for recent wedding including multiple grandchildren, but she is concerned for DVT, she has a history of DVT. Related Data Allergies Allergy/AdvReac Type Severity Reaction Status Date / Time adhesive tape Allergy Mild Redness of Verified 01/03/25 15:45 Skin red (food color) Allergy Mild Difficulty Verified 01/03/25 15:45 Swallowing Review of Systems Review of Systems: All systems reviewed & are unremarkable except as noted in HPI and below Exam Narrative: EXAMINATION OF ORGAN SYSTEMS/BODY AREAS: Constitutional: Vital signs per nursing GENERAL:[No acute distress, non-toxic appearing.] HEAD: Normal with no signs of head trauma. EYES: EOMI, conjunctiva normal ENT: Hearing grossly intact LUNGS: Nonlabored breathing. HEART: [Regular rate and rhythm] ABD: [Soft], [nontender to palpation] EXT: Normal range of motion, small area of bruising/swelling to lateral left leg SKIN: See above NEURO: [Alert and oriented x 3. No gross focal sensory or strength deficits.] PSYCH: Normal affect Course Vital Signs Vital signs: Vital Signs Temperature 98.3 F 01/03/25 15:33 Pulse Rate 81 01/03/25 15:33 Respiratory Rate 17 01/03/25 15:33 Blood Pressure 142/82 H 01/03/25 15:33 Pulse Oximetry 97 01/03/25 15:33 Oxygen Delivery Room Air 01/03/25 15:33 Temperature 98.3 F 01/03/25 15:33 Pulse Rate 81 01/03/25 15:33 Respiratory Rate 17 01/03/25 15:33 Blood Pressure 142/82 H 01/03/25 15:33 Pulse Oximetry 97 01/03/25 15:33 Oxygen Delivery Room Air 01/03/25 15:33 MDM - Extremity (Nontraumatic) MDM Narrative Medical decision making narrative: Patient presents here with concern for DVT, she has a family history of this and her mother of a DVT that became a PE. Unsure of any recent trauma, she does have a small bruise to her left lateral leg, otherwise no swelling or tenderness, ultrasound here is thankfully negative. Patient instructed on care with strict return precautions and follow-up to PCP. Discharge Plan Discharge Clinical Impression: Leg pain Patient Disposition: Home Condition: Stable Instructions: Leg Pain (ED) Additional Instructions: Your ultrasound today thankfully does not show any clot. You can try taking NSAIDs (ibuprofen), using ice and elevating the leg and using compression stockings. If you start noticing more swelling or pain or anything else concerning, please come back to the emergency room. Please follow-up with your primary care doctor. Patient Language: Citizen Of [place] Follow-up/Referrals: PHYSICIAN,JEWEL CUPPING MACHINE OPERATOR [Primary Care Provider] -
== END 2025-01-03 17:25 | disposition home or self-care (01) ==
LOC: ANHED 17:02
PROVIDERS: Emergency Provider Emergency Medicine
DX: M79.605 Pain in left leg (principal); Z86.718 Personal history of other venous thrombosis and embolism
CPT/HCPCS: 93971; 99284

== ENCOUNTER 2025-04-11 11:24 | Outpatient (CLI) | payer MEDICARE, SELFPAY ==
--- NOTE | ~2025-04-11 | MM_ITS ---
EXAMINATION: MM diagnostic libia RT w tadeo INDICATION: Asymptomatic, referred for screening mammogram. History of Left mastectomy 2019. COMPARISON: 03/04/2024 and 01/30/2023 TECHNIQUE: Full field digital CC, MLO views were obtained of RIGHT breast with computer-aided detection to assist in interpretation of the study. FINDINGS: The breasts are heterogeneously dense, which may obscure small masses. No focal dominant mass, architectural distortion, or suspicious microcalcifications are identified. There are no features to suggest malignancy. Biopsy clip in the right breast. IMPRESSION: 1. No mammographic evidence of malignancy. 2. Recommend routine screening mammography in one year. BI-RADS Category 1: Negative Reviewed, dictated and finalized at location B.
--- OUTSIDE RECORDS SUMMARY | 2025-04-11 14:19 | XMS_ITS | Encounter Summary ---
Author Organization [facility] Address [address] [place] [id number] Care Team Providers Care Senior Technical Analyst Name Role Phone Geovanna Anderson MD Primary Care Provider + Encounter Details Date Type Department Care Team (Late st Contact Info) Description 04/01/2025 Enervee Message Enc [facility] Family Medicine - [place] [address] [facility] [address] [place] [address] [phone] Geovanna Anderson MD [address] [address] GI Doctor Social History Tobacco Use Types Packs/Day Years Used Date Smoking Tobacco: Never Passive Smoke Exposure: Never Smokeless Tobacco: Never Alcohol Use Standard Drinks/Week Comments Yes 5 (1 standard drink = 0.6 oz pur e alcohol) Sometimes none PHQ-2 Answer Date Recorded Patient Health Questionnaire-2 Score 0 03/16/2025 Comments No Sex and Gender Information Value Date Recorded Sex Assigned at Not on file Legal Sex Female 10:08 AM CDT Gender Identity Not on file Sexual Orientation Not on file documented as of this encounter Progress Notes * Maryan Elizondo MA - 04/03/2025 10:00 AM CDT Sent letter to patient to let her know we haven't received her old records yet so we are not sure when she is due for colonoscopy. I asked her to call their office to find out last colonoscopy and the name of the GI doctor. Maryan documented in this encounter Plan of Treatment Upcoming Encounters Date Type Department Care Team (Late st Contact Info) Description 03/20/2026 9:50 AM CDT Office Visit [facility] Family Medicine - [place] [address] [place] [address] Geovanna Anderson MD [address] [place] [address] documented as of this encounter Visit Diagnoses Not on filedocumented in this encounter Care Teams Senior Technical Analyst Relationship Specialty Start Date End Date Geovanna Anderson MD [address] [place] [address] PCP - General FAMILY PRACTICE 03/16/25 05/02/25 documented as of this encounter
--- OUTSIDE RECORDS SUMMARY | 2025-04-11 14:19 | XMS_ITS | Clinical Summary ---
Author Organization [facility] Address [address] [place] [place] [address] Care Team Providers Care School Traffic Supervisor Name Role Phone Geovanna Anderson MD Primary Care Provider + Allergies Active Allergy Reactions Criticality Noted Date Comments Iodinated Contrast Media Other (see comment) 04/22/2019 Tightness in throat Medications Cholecalciferol (VITAMIN D3) 25 MCG (1000 UT) Cap Take 1,000 Units by mouth daily. Active [place]-3 Fatty Acids (FISH OIL) 1200 MG Cap Take 1,000 mg by mouth daily. Active multi vitamin/minerals (THERA-M ENHANCED) tablet Take 1 tablet by mouth daily. Active Calcium Carb-Cholecalcif anand 1000-20 MG-MCG Tab Take 600 mg by mouth. Active TURMERIC OR Take by mouth. Active Levomefolate Glucosamine (5-MTHF OR) Take 1 mg by mouth daily. Active LUTEIN OR Take 1 tablet by mouth daily. 03/16/20 25 Discontinu ed(Therapy completed) Active Problems Problem Noted Date Diagnosed Date Age-related osteoporosis wit hout current pathological fracture 03/16/2025 Malignant neoplasm of upper- outer quadrant of left breast in female, estrogen receptor positive 02/14/2020 Elevated serum cholesterol 01/17/2020 Overview (03/16/2025): ASCVD based on 2020 FLP 2.5% 10 yr and 39% total life Anxiety and depression 08/31/2012 Encounters Date Type Department Care Team Description 04/01/2025 MyChart Message Enc [facility] Family Medicine - [place] [address] [place] [address] Geovanna Anderson MD GI Doctor 03/17/2025 MyChart Message Enc [address] [place] [address] Geovanna Anderson MD Blood pressure 03/16/2025 11:30 AM CDT Office Visit [address] [place] [address] Geovanna Anderson MD New Patient (Here to get established. Also having something with her throat. She feels its may be stomach acid.) 03/16/2025 Travel from Last 3 Months Immunizations Immunization Administration Dates Next Due Tdap (Generic) 12/16/2016 Family History Medical History Relation Comments Arthritis Father Rheumatoid and o steoarthritis None Father Parkinson's Dise ase. at age 93 Early Mother Sudden by massive Pulmonary embolism. No Known Problems Sister Genetic Son 1 alpha gal No Known Problems Son 2 No Known Problems Son 3 No Known Problems Son 4 No Known Problems Son 5 No Known Problems Son 6 Relation Status Comments Father Mother Sister Alive Son 1 Alive Son 2 Alive Son 3 Alive Son 4 Alive Son 5 Alive Son 6 Alive Social History Tobacco Use Types Packs/Day Years Used Date Smoking Tobacco: Never Passive Smoke Exposure: Never Smokeless Tobacco: Never Tobacco Cessation:Counseling Given: No Alcohol Use Standard Drinks/Week Comments Yes 5 [...] Sign Reading Time Taken Comments Blood Pressure 137/78 03/17/2025 1:56 PM CDT home reading Pulse 79 03/16/2025 11:36 AM CDT Temperature 36.4 C (97.5 F) 03/16/2025 11:36 AM CDT Respiratory Rate - - Oxygen Saturation 98% 03/16/2025 11: 36 AM CDT Inhaled Oxygen Concentration - - Weight 66.3 kg (146 lb 3.2 oz) 03/16/20 11:36 AM CDT Height 165.7 cm (5' 5.25) 03/16/2025 1 1:36 AM CDT Body Mass Index 24.14 03/16/2025 11:36 AM CDT Plan of Treatment Upcoming Encounters Date Type Department Care Team (Late st Contact Info) Description 03/20/2026 9:50 AM CDT Office Visit [facility] Family Medicine - [place] [address] [place] [address] Geovanna Anderson MD [address] [place] [address] Health Maintenance Due Date Last Done Comments Colorectal Cancer Screening Colonoscopy (10 Years) 1955 Hepatitis C 09/13/1973 Pneumococcal Vaccine: 50+ Years (1 of 1 - PCV) 09/13/2005 Zoster Vaccines (1 of 2) 09/13/2005 Annual Medicare Wellness Visit 09/13/2020 COVID-19 Vaccine (1 - season) 2025 Influenza Adult (#1) 2025 Mammogram Screening 03/04/2026 03/04/2024, 01/30/2023, 01/17/2022, Additional history exists DTaP, Tdap and Td Vaccines (2 - Td or Tdap) 12/16/2026 12/16/2016 RSV Immunization or 60+ Years (1 - 1-dose 75+ series) 09/13/2030 Dexa Scan (General) Completed 10/06/2024, 10/06/2024, 03/20/2022, Additional history exists PHQ-2 (Physician [place]) Completed 03/16/2025 Hepatitis A Vaccines Aged Out No long er eligible based on patient's age to complete this topic Meningococcal B Vaccine Aged Out No l onger eligible based on patient's age to complete this topic Meningococcal Vaccine Aged Out No cy holly eligible based on patient's age to complete this topic RSV Immunizations Under 20 Months Aged Out No longer eligible based on patient's age to complete this topic Insurance AETNA MEDICARE Care Teams School Traffic Supervisor Relationship Specialty Start Date End Date Geovanna Anderson MD [address] [place] [id number] PCP - General FAMILY PRACTICE 03/16/25 05/02/25
--- OUTSIDE RECORDS SUMMARY | 2025-04-11 14:20 | XMS_ITS | Clinical Summary ---
Author Organization [facility] Address [address] [place] [address] Phone Care Team Providers Care Steward/Stewardess [place] Name Role Phone Imtiaz Leung MD Unavailable [phone] Yuliana Downey RN Unavailable Unavailab Donna Black MD Unavailable Apurva Mcallister APRN, LEAD POURER Primary Care Provi checo Allergies Active Allergy Reactions Criticality Noted Date Comments Iodinated Contrast Media Other (see Comments) 04/22/2019 Tightness in throat Wound Dressings Rash Low 01/30/2020 Medications [place]-3 Fatty Acids (FISH OIL) 1200 MG PO [...] Encounters Date Type Department Care Team Description 03/03/2025 Community Orders [facility] [address] [phone] Michele Lee MD Malignant neoplasm of upper-outer quadrant of left female breast, unspecified estrogen receptor status (HCC) (Primary Dx) from Last 3 Months Family History Medical [...] on file Legal Sex Female 10:39 AM CALCINER FEEDER Gender Identity Not on file Sexual Orientation Not on file Last Filed Vital Signs Vital Sign Reading Time Taken Comments Blood Pressure 122/68 08/05/2022 11:08 AM CALCINER FEEDER Pulse 72 08/05/2022 11:08 AM CALCINER FEEDER Temperature 37 C (98.6 F) 03/16/2019 9:07 AM CDT Respiratory Rate 16 08/05/2022 11:08 AM CALCINER FEEDER Oxygen Saturation 98% 08/05/2022 11:08 AM CALCINER FEEDER Inhaled Oxygen Concentration - - Weight 69.4 kg (153 lb) 07/31/2022 7:00 AM CALCINER FEEDER Height 167.6 cm (5' 6) 07/31/2022 7:00 AM CALCINER FEEDER Body Mass Index 24.69 07/31/2022 7:00 AM CALCINER FEEDER Plan of Treatment Health Maintenance Due Date Last Done Comments Hepatitis C Virus (HCV) Screening 1955 SARS-COV-2 Immunization (#1) 09/13/1960 Pneumococcal Immunization (50+ years) (1 of 2 - PCV) 09/13/1974 Zoster Immunization (1 of 2) 09/13/1974 Cologuard 09/13/2000 Immunochemical Fecal Occult Blood 09/13/2000 Medicare Initial AWV [id number] 09/20/2021 Influenza Immunization (#1) 2025 DEXA Bone Density [...] Routine 10/06/2024 1:30 PM CDT Postmenopausal status [facility] DIAG RIGHT UNILATERAL DIGITAL W CAD W [place] Routine 03/04/2024 9:09 AM CDT Malignant neoplasm of upper-outer quadrant of left female breast, unspecified estrogen receptor status (HCC) [facility] MRI BREAST W/WO CONTRAST,BILATERAL Routine 01/30/2020 3:15 PM CDT Malignant neoplasm of left female breast, unspecified estrogen receptor status, unspecified site of breast (HCC) from Last 3 Months or Most Recently Relevant to Health Maintenance Results * [facility] BONE DENSITOMETRY AXIAL SKELETON (10/06/2024 1:30 PM CDT) Anatomical Region Laterality Modality BODY N/A Other 10/06/2024 1:30 PM CDT Impressions 10/06/2024 3:40 PM CDT IMPRESSION: 1. Osteoporosis FRAX Data not reported as some T-scores for the spine and/or hip at or below - 2.5. Follow up Dexa in 2 years may be warranted. Narrative 10/06/2024 3:40 PM CDT DICTATING PHYSICIAN: Jarrett Alexanedr M.D. EXAM: [facility] BONE DENSITOMETRY AXIAL SKELETON, 10/06/2024 1:30 PM [...] 10/06/2024 DICTATING PHYSICIAN: Jarrett Alexander M.D. EXAM: [facility] BONE DENSITOMETRY AXIAL SKELETON, 10/06/2024 1:30 PM [...] years may be warranted. Apurva Mcallister APRN, SUSAN IM DEXA ORDERABLES Final Result * [facility] DIAG RIGHT UNILATERAL DIGITAL W CAD W [...] findings. Narrative 03/04/2024 11:34 AM CDT EXAM: [facility] DIAG RIGHT UNILATERAL DIGITAL W CAD W [place], [facility] US BREAST LIMITED RT 03/04/2024 9:09 AM [...] Note Lyssa Bowman MD - 03/04/2024 EXAM: [facility] DIAG RIGHT UNILATERAL DIGITAL W CAD W [place], [facility] US BREASTLIMITED RT 03/04/2024 9:09 AM CLINICAL [...] BI-RADS: 3-Probably benign findings. us Lin Gutierrez MEDICAL VOUCHER CLERK, LEAD POURER IMG MAMMO ORDERABLES Final Result * [facility] MRI BREAST W/WO CONTRAST,BILATERAL (01/30/2020 3:15 PM [...] CDT DICTATING PHYSICIAN: Shanta Ledesma M.D. EXAM: [facility] MRI BREAST W/WO CONTRAST,BILATERAL, 01/30/2020 3:15 PM. [...] in a GE 1.5 Mariam magnet using Ritot software and a Sentinelle table with a [...] 01/31/2020 DICTATING PHYSICIAN: Shanta Ledesma M.D. EXAM: [facility] MRI BREAST W/WO CONTRAST,BILATERAL, 01/30/2020 3:15 PM. CLINICAL HISTORY: Patient has known carcinoma of the left breast. Shepresents for pre-surgical planning to determine extent of disease in theleft breast and to exclude additional malignancy in both breasts. COMPARISON EXAMS: Mammography (01/20/2020, 01/06/2020, 11/28/2019, 09/16/2018),sonography (01/06/2020) and ultrasound guided core biopsies of the leftbreast (01/20/2020). Technique: The patient's breasts were imaged in a CrowdChat 1.5 Mariam magnet using Loaded Pockettware and a Sentinelle table with a dedicated breast coil. Imagingconsisted of: axial FSE T2, axial STIR, axial FSE T1, axial vibrant [id number] with fat saturation pre- contrast and dynamic enhanced sequences.During the first dynamic acquisition, 14 mL of Gadolinium (Prohance) wasadministered as an intravenous bolus injection. A total of five [id number] data-sets were acquired over 8 minutes 8 [...] Maintenance Insurance MEDICARE C AETNA Care Teams Steward/Stewardess [place] Relationship Specialty Start Date End Date Apurva Mcallister APRN, LEAD POURER [address] [place], [place] [phone] PCP - General Certified Nurse Practitioner 01/17/22 Imtiaz Leung MD [address] [place] [address] Consulting Physician Cardiovascular Disease - Cardiology 08/25/12 Yuliana Downey RN [place] Oncology Nurse Navigator Breast Clinic / Breast Center 01/30/20 Donna Adkins MD [place] Surgeon General Surgery 01/30/20
== END 2025-04-11 11:25 | disposition home or self-care (01) ==
LOC: ANHFOHIMG 11:25
DX: C50.412 Malignant neoplasm of upper-outer quadrant of left female breast (principal)
CPT/HCPCS: 77061; 77065; G0279